=== PATIENT | female | born 1990 | race Caucasian/White ===

== ENCOUNTER 2021-07-01 10:22 | Outpatient (CLI) | payer OTHER, SELFPAY ==
[2021-07-01 11:00] LABS: Hematocrit 40.2 % (37.0-47.0); Hemoglobin 13.4 g/dL (12.0-15.0); Mean Corpuscular HGB Conc 33.3 g/dl (32-36); Mean Corpuscular Hemoglobin 31.7 pg (26-34); Mean Platelet Volume 9.3 fl (7.4-10.4); Platelet Count Result 330 k/mm3 (150-375); Red Blood Count 4.23 M/mm3 (4.2-5.4); Red Cell Distribution Width 12.6 % (11.5-14.5); White Blood Count 6.2 K/mm3 (4.5-10.0)
== END 2021-07-01 10:23 | disposition home or self-care (01) ==
PROVIDERS: Visit Provider Obstetrics & Gynecology Gynecologic Oncology
DX: Z01.812 Encounter for preprocedural laboratory examination (principal); N92.0 Excessive and frequent menstruation with regular cycle
CPT/HCPCS: 36415; 85027; 86850; 86900; 86901

== ENCOUNTER 2021-07-03 00:52 | Day surgery (SDC) | payer OTHER, SELFPAY ==
[2021-06-29 15:13] VITALS: BMI 27.4
--- NOTE | 2021-06-29 15:21 | PC.NURSE ---
Report to the Outpatient Waiting Room, entrance under the green pavilion located off [facility], at time 12:00 on date 07/03/21. OR Time: 2:00. - You and your visitor will be asked a series of questions to screen for COVID 19 for your protection. - A mask is required within the hospital. One visitor will be allowed to accompany the patient into the hospital. Patients visitor will be instructed to remain with patient at all times or leave the building. We will allow the visitor to come back to the postoperative area when patient is ready. Preoperative COVID Testing Requirements: No COVID Test needed if: (proof is required; if not received patient will have Rapid Test prior to entry) - Patient has received COVID Vaccine at least 14 days prior to procedure date or - Patient has positive COVID test result within last 90 days of surgery date. COVID Test needed if above criteria is not met Patients may have clear liquids (water, carbonated beverages, clear teas, apple juice) until 3 hours prior to surgery (11:00) with a maximum of 20 ounces. - No food from midnight until time of surgery Take the following medications with a SIP of water the morning of surgery: NONE Medications to discontinue per physician: VITAMINS Date to take last dose: 06/29/21 Please no make-up, nail cuban, hairspray, perfume, deodorant, or body powder the day of surgery. No jewelry (including any body piercings) or valuables the day of surgery, leave them at home. Please take a shower or bath the night before, or the morning of, surgery with an antibacterial soap. Wear comfortable, loose fitting clothing. - Jewelry must be removed prior to entering the operating room. Rings and piercings that are not removed may be cut off. - The hospital will not accept responsibility for valuables. - Please leave all valuables, including medications, at home the day of surgery. If you are going home after surgery, a licensed independent driver must drive you home. - NO public transportation without another adult. - We recommend that an adult stay with you for 24 hours following discharge. - We also recommend that you do not drive, make important decision, drink alcoholic beverages, or take any drugs that were not prescribed by your health care provider for at least 24 hours after your discharge time. Follow any additional instructions given to you from your surgeon. Telephone instructions given to ZACH PALACIOS and asked if any additional questions and then verbalized understanding. Patient advised to call surgeon office or pre surgery nurse liaison [phone] if any additional questions.
[2021-07-03] VITALS (8 sets, daily range): BP systolic 110–126; BP diastolic 69–78; PULSE 60–90; RESP 12–20; TEMP 36.4–36.5; O2SAT 98–100
--- NOTE | 2021-07-03 10:12 | WPDANESEPPF ---
Anes - Initial Pre Proc Eval Procedure: Operation Date: 07/03/21 14:00 Proposed Procedures p Diagnostic Laparoscopy, Bilateral Salpingectomy, - Joanna Rosa DO s Hysteroscopy, Dilation and Curettage, Novasure Endometrial Ablation - Joanna Rosa DO Date/Time: 07/03/21 10:12 Surgeon: Joanna Rosa DO Pre Op Diagnosis: desires sterility, menorrhaghia Patient Data Age: 31 Gender: F Height: 1.6 m Weight: 70.31 kg Allergies Allergy/AdvReac Type Severity Reaction Status Date / Time latex Allergy Rash Verified 06/29/21 15:17 Home Medications Medication Instructions Recorded Confirmed Type multivitamin 1 tablet PO DAILY 06/29/21 06/29/21 History Results Review: All pre-operative results and documents have been reviewed as part of the pre-operative evaluation. PMFSH Social History Social History Smoking status: Never smoker Alcohol intake: never Substance use: never Substance use type: does not use Living arrangements: with family Spiritual care concerns: No Anes - Eval Final PreProcedure Day of Procedure 07/03/21 10:12 Results Review: All pre-operative results and documents have been reviewed as part of the pre-operative evaluation. Informed Consent: The patient's anesthetic plan and its attendant risks and benefits were discussed with the patient/family/POA. Questions were solicited and answers provided to the satisfaction of the patient/family/POA.
[2021-07-03] MEDS: GABAPENTIN 300 MG CAPSULE PO (12:35)
[2021-07-03] MEDS: ACETAMINOPHEN 500 MG TABLET 1000 MG PO (12:35)
--- NOTE | 2021-07-03 12:43 | PM.IMHP ---
H&P: HPI History of Present Illness Date/Time: 07/03/21 12:43 Chief Complaint: I'm here for my surgery Narrative: Lorenzo is here for diagnostic laparoscopy, bilateral salpingectomy, hysteroscopy, D&C, Novasure ablation for menorrhagia and desiring permanent sterilization. Review of Systems Review of Systems: All systems reviewed & are unremarkable except as noted in HPI and below PMFSH Social History Social History Smoking status: Never smoker Alcohol intake: never Substance use: never Substance use type: does not use Living arrangements: with family Spiritual care concerns: No Meds Home Medications and Allergies Home Medications Medication Instructions Recorded Confirmed Type multivitamin 1 tablet PO DAILY 06/29/21 07/03/21 History Allergies Allergy/AdvReac Type Severity Reaction Status Date / Time latex Allergy Rash Verified 07/03/21 12:16 Vital Signs Vital Signs - 24 hr 07/03/21 12:18 Temperature 36.5 C Pulse Rate 84 Respiratory Rate 20 Blood Pressure 126/76 Pulse Oximetry 100 Exam Const: General: comfortable and no acute distress Eyes: General: appearance normal, both eyes and all related structures Resp: Auscultation: clear to auscultation bilaterally Cardio: Rate: regular rate Rhythm: regular rhythm GI: GI Palp: Yes Soft to palpation Percussion: Yes normal to percussion Auscultation: normal bowel sounds Skin: General skin exam: normal color and no rashes or lesions noted Neuro: General: gait normal Cognition (Neuro): normal cognition Psych: Mental Status: mental status grossly normal Affect: normal affect Assessment and Plan Assessment and plan (1) Sterilization: Code(s): Z30.2 - Encounter for sterilization Status: Acute (2) Menorrhagia: Code(s): N92.0 - Excessive and frequent menstruation with regular cycle Status: Acute
--- NOTE | 2021-07-03 12:45 | WPDHPUPDATE1 ---
History and Physical Update Update Date/Time: 07/03/21 12:45 History and Physical has been reviewed, including an updated exam of the patient. There are NO changes in the patient's condition. Risks, benefits, and alternatives have been discussed and questions answered. Patient agrees to proceed with procedure.
--- NOTE | 2021-07-03 13:10 | WPDANESEPPF ---
Anes - Initial Pre Proc Eval Procedure: Operation Date: 07/03/21 14:00 Proposed Procedures p Diagnostic Laparoscopy, Bilateral Salpingectomy, - Joanna Rosa DO s Hysteroscopy, Dilation and Curettage, Novasure Endometrial Ablation - Joanna Rosa DO Date/Time: 07/03/21 13:10 Surgeon: Joanna Rosa DO Pre Op Diagnosis: desires sterility, menorrhaghia Patient Data Age: 31 Gender: F Height: 1.6 m Weight: 70.8 kg Last Vital Signs Temp 36.5 C 07/03/21 12:18 Pulse 84 07/03/21 12:18 Resp 20 07/03/21 12:18 BP 126/76 07/03/21 12:18 Pulse Ox 100 07/03/21 12:18 Allergies Allergy/AdvReac Type Severity Reaction Status Date / Time latex Allergy Rash Verified 07/03/21 12:16 Home Medications Medication Instructions Recorded Confirmed Type multivitamin 1 tablet PO DAILY 06/29/21 07/03/21 History Patient hx anesthesia problems: none Family hx anesthesia problems: none Results Review: All pre-operative results and documents have been reviewed as part of the pre-operative evaluation. [facility] Past Medical History Medical History (Updated 07/03/21 @ 13:11 by Sukhi Ingram DO) PCOS (polycystic ovarian syndrome) Social History Social History Smoking status: Never smoker Alcohol intake: never Substance use: never Substance use type: does not use Living arrangements: with family Spiritual care concerns: No Anes - Eval Final PreProcedure Day of Procedure 07/03/21 13:10 Patient weight: overweight Heart: regular rate and rhythm Lungs: clear to auscultation and normal air movement Airway: Mallampati scale class II Neurological: alert and oriented Last oral intake: >/= 8 hours ASA classification: II Emergent: no Anesthetic plan: proceed Anesthesia type and monitoring: general ETT and standard monitoring Results Review: All pre-operative results and documents have been reviewed as part of the pre-operative evaluation. Informed Consent: The patient's anesthetic plan and its attendant risks and benefits were discussed with the patient/family/POA. Questions were solicited and answers provided to the satisfaction of the patient/family/POA.
[2021-07-03] MEDS: LACTATED RINGERS 1,000 ML 30 ML IV CONT ×2 (14:00→16:38)
[2021-07-03] MEDS: fentaNYL CITRATE INJ (*CRX) 100 MCG/2 ML VIAL 25 MCG IV PUSH ×4 (16:29→16:50)
[2021-07-03] MEDS: ONDANSETRON INJ 4 MG/2 ML VIAL IV PUSH (17:13)
[2021-07-03] MEDS: SCOPOLAMINE 1.5 MG PATCH TRANSDERM (18:00)
[2021-07-03] MEDS: diphenhydrAMINE HCl INJ 50 MG/ML VIAL 12.5 MG IV PUSH (18:00)
--- NOTE | 2021-07-06 09:39 | W.PM.PROC2 ---
Procedure Note - Detailed Date of Procedure 07/06/21 Pre-op Diagnosis desires sterility, menorrhaghia Post-op Diagnosis Same Procedure Performed Diagnostic lap, bilateral salpingectomy. Hysteroscopy, D&C, Novasure ablation Surgeon Joanna Rosa DO Change Over Christiano Anesthesia General Indications Menorrhagia, desires sterilization Findings Normal vulva, vaginal canal and cervix. Unremarkable endometrial cavity. Internally, the bowels and pelvic organs were unremarkable. Uterus, tubes and ovaries were normal. Description of Procedure The patient was taken to the OR and placed under general anesthesia. She was prepped and draped in the usual sterile fashion in a dorsal lithotomy position. A timeout was performed. No antibiotics were indicated. The bladder was drained with straight cath and a speculum was used to visualize the cervix. A long Allis clamp was used to grasp the cervix and it was sequentially dilated up to accommodate an acorn uterine manipulator. The speculum was removed and gloves were changed. The skin above the umbilicus was grasped with penetrating towel clamps. The skin was injected with local and incised with a scalpel. A Veress needle was introduced and a saline water drop test confirmed intraperitoneal placement. The abdomen was insufflated with CO2 gas. Once 15 mm Hg was reached the Veress was replaced with a 5 mm trocar inserted under direct visualization. Survey of the abdomen revealed no evidence of bowel or vascular injury. The patient was placed in steep trendelenburg position. Additional trocar sites were identified, injected and incised in the right and left lower quadrants. 5 mm trocars were inserted under direct visualization. The pelvic organs were examined and found to be normal. The right tube was elevated and cauterized and transected off using the Ligasure. It was passed off through the insurance sales assistant port. The procedure was repeated on the left side and the specimen removed from the body. The pedicles were all inspected and found to be hemostatic. The CO2 was allowed to escape and the trocars were removed. the skin incisions were closed with 4-0 monocry in subcuticular fashion and covered with steri strips. The camera was moved and hooked up to the hysteroscope. The acorn was removed, speculum reinserted and the cervix dilated up to the accommodate the scope. The hysteroscope was introduced and a survey of the endometrial cavity was unremarkable. No lesions seen and the ostia were visualized. The [employer] was then introduced after measurements were taken. Uterine cavity length was 5.5 cm, width 2.7 cm. The device was actived for 107 seconds at 82 dash. The collar was retracted and the device retracted into the catheter. The novasure was removed. The allis clamp and speculum were removed. All fluid was wiped clean of the vagina. All instruments were removed. The patient was taken to the recovery room in stable condition. All instruments and sponges were correct at the end of the procedure. Estimated Blood Loss 5 Urine Output 25 Drains No Packing No Pathology Yes Complications No immediate complications Condition Stable Disposition PACU
== END 2021-07-03 18:17 | disposition home or self-care (01) ==
PROVIDERS: Visit Provider Obstetrics & Gynecology Gynecologic Oncology
PROC: (CPT 49320; principal; 2021-07-03 14:00)
PROC: 0U5B8ZZ Destruction of Endometrium, Via Natural or Artificial Opening Endoscopic (ICD-10-PCS; CPT 58563; 2021-07-03 14:00)
DX: Z30.2 Encounter for sterilization (principal); N92.0 Excessive and frequent menstruation with regular cycle; E28.2 Polycystic ovarian syndrome; N94.6 Dysmenorrhea, unspecified
CPT/HCPCS: 58563; 58661; 36415; 85027; 86850; 86900; 86901; 88302; 88305; A9270; J1100; J1200; J2001; J2250; J2405; J2704; J2710; J3010; J7030; J7120